=== PATIENT | female | born 1970 | race American Indian/Alaskan Native ===

== ENCOUNTER 2016-10-10 09:29 | Emergency (ER) | payer BC ==
[2016-10-10] MEDS ORDERED: TYLENOL PO ONE ×2 (10:40→12:23)
[2016-10-10] MEDS ORDERED: BENADRYL IV ONE (10:40)
[2016-10-10] MEDS ORDERED: VALIUM IV ONE (10:40)
[2016-10-10] MEDS ORDERED: NACL 0.9% 1000 ML 1,000 ML IV ONE (10:40)
[2016-10-10] MEDS ORDERED: REGLAN IV ONE (10:40)
--- NOTE | 2016-10-10 10:44 | Emergency Department Report ---
HPI - General Chief Complaint: Neuro Symptoms/Deficit Time Seen by Provider: 10/10/16 10:10 - HPI HPI: The patient is a 46-year-old female who presents for evaluation of headache and tingling to the left arm, shoulder, neck, and face. The patient reports constant moderate in severity aching headache, generalized, since 11 PM last night, 11 hours prior to my evaluation. She has also experienced mild tingling in the left arm, neck, and left lower face for the same duration. The patient denies fever, head injury, neck pain or trauma, neck stiffness, chest pain, dyspnea, hemoptysis, vision or hearing changes, smell or taste changes, slurred speech, facial drooping, motor deficit in the arms or legs, seizure-like activity, urine or bowel incontinence or retention, or other focal neurological deficit. ED Past Medical Hx - Past Medical History Hx Hypertension: Yes Additional medical history: Small bowel obstruction - Surgical History Hx Cholecystectomy: Yes Hx Appendectomy: Yes Additional Surgical History: right ovary removed /hysterectomy - Social History Smoking Status: Never Smoker Substance Use Type: None - Medications Home Medications: Home Medications Medication Instructions Recorded Confirmed Last Taken Type amLODIPine [Norvasc] 10 mg PO DAILY 03/22/14 10/10/16 10/09/16 History Acetaminophen [Tylenol] 650 mg PO Q6HR PRN 10/10/16 10/10/16 10/09/16 History traMADol [Ultram 50 MG tab] 50 mg PO Q6HR PRN #12 tablet 10/10/16 Unknown Rx ED Review of Systems ROS: Stated complaint: LFT ARM/FACE NUMBNESS Other details as noted in HPI Constitutional: denies: fever ENT: denies: throat or neck pain Respiratory: denies: cough, shortness of breath Cardiovascular: denies: chest pain Endocrine: denies unexplained weight loss or gain Gastrointestinal: denies: abdominal pain, nausea Genitourinary: denies: dysuria Musculoskeletal: denies: leg swelling Skin: denies: rash Neurological: reports headache & arm tingling Hematological/Lymphatic: denies: easy bleeding or easy bruising Psych: denies sadness or hopelessness Physical Exam - Physical Exam Vital Signs: Vital Signs 10/10/16 10/10/16 09:39 10:29 Temperature 98.6 F Pulse Rate 88 84 Respiratory 18 18 Rate Blood Pressure 149/104 Blood Pressure 140/93 [Right] O2 Sat by Pulse 98 96 Oximetry Physical Exam: General: well-nourished, well-developed, no acute distress Head: Normocephalic, atraumatic Eyes: normal sclera, PERRL, EOM intact ENT: Mucous membranes are pink and moist Neck: trachea midline, neck supple, No neck stiffness, no midline cervical spinous tenderness to palpation, no spinous step-off or obvious deformity Respiratory: Breath sounds equal bilaterally, no wheezing, rales, or rhonchi Cardio: S1 and S2 present, no murmurs, rubs, gallops, capillary refill is brisk Abdomen: Normoactive bowel sounds, soft abdomen, no rigidity, no guarding or rebound tenderness Musc: No pitting edema Skin: No rash Neuro: alert oriented x4, normal cognition, speech normal, no facial drooping, no sensation deficit in the face, no uvula or tongue deviation on protrusion, no deficit with rotation of neck or shoulder shrug, no obvious gross motor deficit in the upper or lower extremities with flexion or extension at the shoulder, elbow, wrist, hip, knee, or ankle bilaterally, no obvious gross sensation deficit in the arms or legs, 2+ symmetric reflexes on DTR testing, no coordination deficit with [id number] testing, romberg negative, patient able to to ambulate without abnormal gait Psych: Normal affect ED Course Vital Signs 10/10/16 10/10/16 09:39 10:29 Temperature 98.6 F Pulse Rate 88 84 Respiratory 18 18 Rate Blood Pressure 149/104 Blood Pressure 140/93 [Right] O2 Sat by Pulse 98 96 Oximetry ED Medical Decision Making - Lab Data Result diagrams: 10/10/16 11:04 10/10/16 11:04 - Medical Decision Making The patient was seen and examined by myself. The patient is placed on a lunchroom monitor and continuous pulse ox. On initial evaluation, the patient was found to be in no distress. While there are no neuro deficits or other findings on examination concerning for acute intracranial disease process, a CAT scan of the head will be obtained as the patient reports left lateralizing paresthesia with headache and uncontrolled blood pressure. A tablet of Tylenol and IV Reglan and Benadryl were ordered for the patient's headache, and IV hydralazine for her elevated blood pressure. Lab results are unremarkable, including negative test and normal troponin level. CAT scan of the head is negative for acute intracranial disease process. The patient was reevaluated and reported that their symptoms were markedly improved. The patient is stable for discharge with outpatient follow-up. The patient is given follow-up and return instructions. The patient expressed understanding and agreed with the plan. The patient is discharged in stable condition. Critical care attestation.: If time is entered above; I have spent that time in minutes in the direct care of this critically ill patient, excluding procedure time. ED Disposition Clinical Impression: Asymptomatic hypertensive urgency Acute nonintractable headache Qualifiers: Headache type: unspecified Qualified Code(s): R51 - Headache Disposition: DISCHARGED TO HOME OR SELFCARE Is pt being admited?: No Does the pt Need Aspirin: No Condition: Stable Instructions: Chronic Hypertension (ED), Acute Headache (ED) Referrals: PRIMARY CARE, [Primary Care Provider] - 3-5 Days Time of Disposition: 10:56
--- NOTE | 2016-10-10 11:10 | Cat Scan Report ---
CT scan of head without contrast: History: Headache. Findings: Ventricles are normal in size and midline in location. No evidence of acute ischemia, hemorrhage or mass. No extra-axial fluid collection. Normal brainstem and cerebellum. Retention cyst or polyp measuring 1.1 cm in diameter the right maxillary sinus. Normal mastoid air cells. Impression: No acute intracranial abnormality. Retention cyst or polyp right maxillary sinus.
[2016-10-10 11:23] LABS: Mean Corpuscular HGB Conc 32 % (30-34); Mean Corpuscular Hemoglobin 27 pg (28-32); Mean Corpuscular Volume 85 fl (79-97); Platelet Count 326 K/mm3 (140-440); Red Blood Count 4.84 M/mm3 (3.65-5.03); Red Cell Distribution Width 14.8 % (13.2-15.2); White Blood Count 7.2 K/mm3 (4.5-11.0)
[2016-10-10 11:35] LABS: Anion Gap 18 mmol/L; BUN/Creatinine Ratio 13.75; Blood Urea Nitrogen 11 mg/dL (7-17); Calcium 9.1 mg/dL (8.4-10.2); Carbon Dioxide 26 mmol/L (22-30); Chloride 102.3 mmol/L (98-107); Glucose 108 mg/dL (65-100); Magnesium 2.2 mg/dL (1.7-2.3); Potassium 3.9 mmol/L (3.6-5.0); Sodium 142 mmol/L (137-145)
[2016-10-10 14:44] VITALS: BP 124/77
== END 2016-10-10 13:42 | disposition home or self-care (01) ==
LOC: ED 09:29
DX: I10 Essential (primary) hypertension (principal); R51 Headache; Z90.49 Acquired absence of other specified parts of digestive tract
CPT/HCPCS: 36415; 70450; 80048; 83735; 84484; 84703; 85027; 93005; 93010; 96361; 96374; 96375; 99284; J1200; J2765; J7030; J3360

== ENCOUNTER 2017-01-19 09:44 | Outpatient (CLI) | payer BC ==
--- NOTE | 2017-01-19 13:44 | Mammography Report ---
BILATERAL DIGITAL SCREENING MAMMOGRAM with CAD : 01/19/17 09:44:00 CLINICAL: Routine screening. COMPARISON:03/17/15 FINDINGS: The breasts are heterogeneously dense, which may obscure small masses.Left upper outer biopsy clip. No mass, architectural distortion or suspicious calcifications. IMPRESSION: No mammographic evidence of malignancy. BI-RADS CATEGORY: 2 -- Benign RECOMMENDATION: Routine mammographic screening in one year. COMMENT: Patient follow-up letters are generated by our [employer] application.
== END 2017-01-19 09:45 | disposition home or self-care (01) ==
LOC: MAMMO 09:44
PROVIDERS: ATTEND Internal Medicine
DX: Z12.31 Encounter for screening mammogram for malignant neoplasm of breast (principal)
CPT/HCPCS: 77067; G0202

== ENCOUNTER 2018-11-23 09:25 | Outpatient (CLI) | payer BC ==
--- NOTE | 2018-11-23 10:21 | Mammography Report ---
BILATERAL MAMMOGRAM: FINDINGS: There are scattered fibroglandular densities (approximately 25%-50% glandular). No mass, distortion, suspicious calcification, or skin change is seen. There is no significant change compared to her prior exam on January 19, 2017. CAD was utilized. IMPRESSION: Negative mammogram. There is no mammographic evidence of malignancy. RECOMMENDATION: Follow-up per ACS guidelines. BI-RADS CATEGORY: 1 = Negative ACR BI-RADS MAMMOGRAPHIC CODES: 0 = Needs additional imaging evaluation; 1 = Negative; 2 = Benign; 3 = Probably benign; 4 = Suspicious; 5 = Malignant; 6 = Known biopsy-proven malignancy COMMENT: 1. Dense breast tissue, i.e., adenosis, fibrocystic changes, etc., may obscure an underlying neoplasm. 2. Approximately 10% of cancers are not detected with mammography. 3. A negative mammography report should not delay biopsy if a clinically suspicious mass is present. COMMENT: Patient follow-up letters are generated in [employer].
== END 2018-11-23 09:26 | disposition home or self-care (01) ==
LOC: MAMMO 09:25
PROVIDERS: ATTEND Obstetrics & Gynecology
DX: Z12.31 Encounter for screening mammogram for malignant neoplasm of breast (principal); I10 Essential (primary) hypertension; Z90.710 Acquired absence of both cervix and uterus; Z90.49 Acquired absence of other specified parts of digestive tract
CPT/HCPCS: 77067

== ENCOUNTER 2021-03-18 14:21 | Outpatient (CLI) | payer BC ==
--- NOTE | 2021-03-18 17:06 | Mammography Report ---
DIGITAL SCREENING MAMMOGRAM WITH CAD, 03/18/2021 CLINICAL INFORMATION / INDICATION: Routine screening mammography. SCREENING MAMMO TECHNIQUE: Digital bilateral 2D mammography was obtained in the craniocaudal and mediolateral obliqu e projections. This examination was interpreted with the benefit of Computer-Aided Detection analysis . COMPARISON: 10/07/10 through 03/17/20. FINDINGS: Breast Density: There are scattered areas of fibroglandular density. No dominant mass, suspicious calcifications, or architectural distortion in either breast. There is a left biopsy clip. No new abnormality is seen. IMPRESSION: No mammographic evidence of malignancy. Follow up recommendation: Routine yearly BI-RADS Category 2: Benign. A "normal" or negative report should not discourage follow up or biopsy of a clinically significant f inding. A written summary of these findings will be mailed to the patient. The patient will be entered into a mammography reporting system which will generate a reminder letter for the patient's next appointmen t at the appropriate interval. The [employer] recommends yearly mammograms starting at age 40 and continuing as l jose as a woman is in good health. Breast MRI is recommended for women with an approximate 20-25% or greater lifetime risk of breast cancer, including women with a strong family history of breast or ova cathy cancer or who have been treated for Hodgkin's disease. Signer Name: Urban Jacobsen MD Signed: 03/18/2021 5:01 PM Workstation Name: [id number]
== END 2021-03-18 14:22 | disposition home or self-care (01) ==
LOC: MAMMO 14:21
PROVIDERS: ATTEND Obstetrics & Gynecology
DX: Z12.31 Encounter for screening mammogram for malignant neoplasm of breast (principal)
CPT/HCPCS: 77067

== ENCOUNTER 2022-03-25 07:17 | Outpatient (CLI) | payer BC ==
--- NOTE | 2022-03-28 15:49 | Mammography Report ---
DIGITAL SCREENING MAMMOGRAM WITH CAD, 03/25/2022 CLINICAL INFORMATION / INDICATION: Routine screening mammography. TECHNIQUE: Digital bilateral 2D mammography was obtained in the craniocaudal and mediolateral obliqu e projections. This examination was interpreted with the benefit of Computer-Aided Detection analysis . COMPARISON: 03/18/2021, 03/17/2020 FINDINGS: Breast Density: There are scattered areas of fibroglandular density. No dominant mass, suspicious calcifications, or architectural distortion in either breast. A biopsy clip is again seen in the upper outer left breast. There has been no significant interval ch radha. IMPRESSION: No mammographic evidence of malignancy. Follow up recommendation: Routine yearly screening mammogram. BI-RADS Category 2: BENIGN. A "normal" or negative report should not discourage follow up or biopsy of a clinically significant f inding. A written summary of these findings will be mailed to the patient. The patient will be entered into a mammography reporting system which will generate a reminder letter for the patient's next appointmen t at the appropriate interval. The [employer] recommends yearly mammograms starting at age 40 and continuing as l jose as a woman is in good health. Breast MRI is recommended for women with an approximate 20-25% or greater lifetime risk of breast cancer, including women with a strong family history of breast or ova cathy cancer or who have been treated for Hodgkin's disease. Signer Name: Zeke Azul MD Signed: 03/28/2022 3:45 PM Workstation Name: [employer]
== END 2022-03-25 07:18 | disposition home or self-care (01) ==
LOC: MAMMO 07:17
PROVIDERS: ATTEND Obstetrics & Gynecology
DX: Z12.31 Encounter for screening mammogram for malignant neoplasm of breast (principal)
CPT/HCPCS: 77067